=== PATIENT | female | born 1960 | race Caucasian/White ===

== ENCOUNTER 2018-07-16 19:38 | Emergency (ER) | payer OTHER ==
[~2018-07-16] VITALS: Ht 165.1 cm; Wt 68.0 kg
[2018-07-16 19:41] VITALS: BP_SYST 177
[2018-07-16 21:12] LABS: BILIRUBIN,URINE NEGATIVE (NEGATIVE); BLOOD, URINE 1+ (NEGATIVE); CLARITY/URINE CLEAR (CLEAR); COLOR,URINE YELLOW (YELLOW); GLUCOSE,URINE NEGATIVE (NEGATIVE); KETONES,URINE NEGATIVE (NEGATIVE); LEUKOCYTE ESTERASE ,URINE NEGATIVE (NEGATIVE); NITRITE, URINE NEGATIVE (NEGATIVE); PH,URINE 5.5 (5.0-8.0); PROTEIN URINE NEGATIVE (NEGATIVE); UROBILINOGEN,URINE 0.2 (0.2-1.0)
[2018-07-16 21:29] LABS: BASOPHILS % (AUTO) 0.7 % (0.0-2.0); EOSINOPHILS # (AUTO) 0.3 K/uL (0.0-0.4); EOSINOPHILS % (AUTO) 4.3 % (0.0-4.0); HEMATOCRIT 39.4 % (36-48); HEMOGLOBIN 12.4 g/dL (12.0-16.0); LYMPHOCYTES # (AUTO) 1.5 K/uL (1.0-5.5); LYMPHOCYTES % (AUTO) 21.8 % (20.5-51.5); MEAN CORPUSCULAR HEMOGLOBIN 28 pg (27-31); MEAN CORPUSCULAR HGB CONC 32 % (32-36); MEAN CORPUSCULAR VOLUME 88 fL (79.0-98.0); MONOCYTES # (AUTO) 0.3 K/uL (0.0-1.0); MONOCYTES % (AUTO) 4.8 % (1.7-9.3); NEUTROPHILS # (AUTO) 4.8 K/uL (1.8-7.7); NEUTROPHILS % (AUTO) 68.4 % (40.0-70.0); PLATELET COUNT (AUTO) 273 K/uL (130-430); RED BLOOD CELL COUNT(AUTO) 4.48 MIL/uL (4.2-6.2); RED CELL DISTRIBUTION WIDTH 12.5 % (9.0-15.0); WHITE BLOOD COUNT (AUTO) 6.9 K/uL (4.8-10.8)
[2018-07-16] MEDS ORDERED: KETOROLAC TROMETHAMINE 15 MG VIAL IVP ONE (21:30)
[2018-07-16] MEDS ORDERED: ONDANSETRON HCL 4 MG/2 ML VIAL IVP ONE (21:30)
[2018-07-16] MEDS ORDERED: LORazepam 2 MG/ML VIAL (FOR ER USE) IVP ONE (21:30)
[2018-07-16 21:36] LABS: CALCIUM 9.6 mg/dL (8.4-11.0); CREATININE 0.96 mg/dL (0.55-1.30); POTASSIUM 3.7 mmol/L (3.5-5.1)
[2018-07-16 21:41] LABS: ALBUMIN 3.6 g/dL (3.4-4.8); TOTAL BILIRUBIN 0.2 mg/dL (0.0-1.0)
[2018-07-16 22:03] LABS: PROTHROMBIN TIME 9.7 SECS (9.5-12.5)
[2018-07-16] MEDS ORDERED: IOHEXOL 100 ML IV ONE (22:06)
[2018-07-16 22:31] LABS: BACTERIA,URINE FEW /HPF (None Seen); MUCUS,URINE None Seen /LPF (None Seen); RBC,URINE 0-3 /HPF (0-3); WBC,URINE 0-3 /HPF (0-3)
[2018-07-17 00:11] VITALS: BP_SYST 122
== END 2018-07-17 00:11 | disposition home or self-care (01) ==
LOC: SED 19:38
DX: M94.0 Chondrocostal junction syndrome [Tietze] (principal); M25.512 Pain in left shoulder; M79.602 Pain in left arm; J45.909 Unspecified asthma, uncomplicated; I10 Essential (primary) hypertension
CPT/HCPCS: 36415; 71045; 71275; 72125; 80053; 81000; 82550; 83880; 84484; 85025; 85379; 85610; 85730; 93005; 96374; 96375; 99285; J1885; J2060; J2405; Q9967

== ENCOUNTER 2019-06-05 20:16 | Inpatient (IN) | payer OTHER ==
[~2019-06-05] VITALS: Ht 165.1 cm; Wt 76.2 kg
--- NOTE | 2019-06-05 20:26 | NUR ---
Patient triaged and placed in waiting room. VSS and patient appears in no acute distress at this time. Accompanied by , awaiting available bed, and MD notified of need for MSE. EKD given to Dr Dunlap
[2019-06-05 20:29] VITALS: BP_SYST 156
--- NOTE | 2019-06-05 20:30 | NUR ---
Dr Abbott doing MSE at [place] [id number]
--- NOTE | 2019-06-05 20:32 | NUR ---
Pt brought by back to waiting room by Dr Dunlap
[2019-06-05 21:44] LABS: BASOPHILS % (AUTO) 0.6 % (0.0-2.0); EOSINOPHILS # (AUTO) 0.5 K/uL (0.0-0.4); EOSINOPHILS % (AUTO) 7.3 % (0.0-4.0); HEMATOCRIT 38.6 % (36-48); HEMOGLOBIN 12.7 g/dL (12.0-16.0); LYMPHOCYTES # (AUTO) 1.3 K/uL (1.0-5.5); LYMPHOCYTES % (AUTO) 20.5 % (20.5-51.5); MEAN CORPUSCULAR HEMOGLOBIN 29 pg (27-31); MEAN CORPUSCULAR HGB CONC 33 % (32-36); MEAN CORPUSCULAR VOLUME 89 fL (79.0-98.0); MONOCYTES # (AUTO) 0.6 K/uL (0.0-1.0); MONOCYTES % (AUTO) 9.7 % (1.7-9.3); NEUTROPHILS # (AUTO) 3.9 K/uL (1.8-7.7); NEUTROPHILS % (AUTO) 61.9 % (40.0-70.0); PLATELET COUNT (AUTO) 257 K/uL (130-430); RED BLOOD CELL COUNT(AUTO) 4.34 MIL/uL (4.2-6.2); WHITE BLOOD COUNT (AUTO) 6.3 K/uL (4.8-10.8)
[2019-06-05 21:57] LABS: CALCIUM 9.1 mg/dL (8.4-11.0); CREATININE 0.91 mg/dL (0.55-1.30); POTASSIUM 3.9 mmol/L (3.5-5.1)
[2019-06-05 22:02] LABS: PROTHROMBIN TIME 9.7 SECS (9.5-12.5)
[2019-06-05 22:08] LABS: ALBUMIN 3.6 g/dL (3.4-4.8); TOTAL BILIRUBIN 0.2 mg/dL (0.0-1.0)
--- NOTE | 2019-06-05 22:47 | NUR ---
Patient to ER bed 1 to gown for evaluation. Side rails up.
--- NOTE | 2019-06-05 23:00 | NUR ---
Pt came to the ED for palpitations, chest pain and L shoulder pain. Pt reports she had a racing HR last night at rest. Pt states HR was in 120s. HX of anxiety and cosmetic sx. Denies n/v/d or fever. No other complaints/injuries noted. Will cont. to monitor.
--- NOTE | 2019-06-06 00:45 | NUR ---
ER at bedside examining patient.
--- NOTE | 2019-06-06 01:01 | NUR ---
belongings list completed.
--- NOTE | 2019-06-06 01:01 | NUR ---
unable to do med reconcilation. Pt reports that she cannot recall meds or dosages.
[2019-06-06] MEDS ORDERED: LORazepam 1 MG TABLET PO ONE (02:00)
--- NOTE | 2019-06-06 02:07 | NUR ---
Patient will be admitted to care of Dr. Corrales. Admitted to Tele unit. Will go to room 109C. Belongings list completed. Summary report printed. Report will be given at bedside.
[2019-06-06] MEDS ORDERED: ACETAMINOPHEN 325 MG TABLET PO PRN (02:15)
--- NOTE | 2019-06-06 02:22 | NUR ---
ADMIT NOTE Received pt from ER to the floor with a diagnosis of chest pain rule out non stemi. Admission process initiated. patient oriented to pain management, safety and call light-teach back done.
--- NOTE | 2019-06-06 02:22 | NUR ---
Transfer to Tele via ACLS protocol. Licensed nurse present. IV present no signs or symptoms of infiltration.
[2019-06-06 02:31] VITALS: BP_SYST 127
[2019-06-06] MEDS ORDERED: DIPH50CA38 PO (02:58)
[2019-06-06] MEDS ORDERED: ALPR0.5T PO (02:58)
[2019-06-06] MEDS ORDERED: METO25TA6 PO (02:58)
[2019-06-06] MEDS ORDERED: AMLO2.5T50 PO (02:58)
--- NOTE | 2019-06-06 03:30 | NUR ---
Pt denies chest pain or discomfort at this time. Pt was given snacks per her request. gambling monitor is showing SR.
--- NOTE | 2019-06-06 03:58 | NUR ---
Consultation Paged Reason for consultation: Cardio Was consult called: Y Person who was notified: Jackie Consulting Physician: Yehuda Saenz Stress Engineer Ordering Physician: Dr. Corrales
--- NOTE | 2019-06-06 05:27 | NUR ---
Pt is sleeping without any distress. Fall and safety precautions are in place.
--- NOTE | 2019-06-06 07:15 | NUR ---
sbar report received at the bedside. patient aaox 4. lungs bilaterally clear. breathing even and unlabored. abdomen soft and non distended. has redness noted on the rt breast near the nipple area. verbalized no pain. not itchy and has dressing on it. has iv access on the left ac #18. saline lock. bed low position, alarmed and locked. ambulatory.
--- NOTE | 2019-06-06 07:20 | NUR ---
Pt is awake and resting in bed without any distress noted. No c/o pain or discomfort. All pt's needs were attended to. Fall and safety precautions are in place. Will endorse to day shift nurse.
[2019-06-06 08:03] VITALS: BP_SYST 133
--- NOTE | 2019-06-06 09:00 | NUR ---
no due medication given. no chest pain nor acute distress noted.
--- NOTE | 2019-06-06 09:21 | NUR ---
CONSULTATION PAGED/CALLED Reason for Consultation: CARDIO Person Who was Notified: SPOKE TO MARIO FROM OFFICE. Consulting Physician: Cdl Truck Driver Specialty: CARDIO Ordering Physician:
--- NOTE | 2019-06-06 11:00 | NUR ---
resting and watching tv. awaiting for dr gomez to come for consult cardiology.
[2019-06-06 12:20] VITALS: BP_SYST 138
--- NOTE | 2019-06-06 13:00 | NUR ---
still eating lunch tray. no pain noted. voided to the bathroom.
--- NOTE | 2019-06-06 15:00 | NUR ---
seen by dr gomez said patient can go home, if okay with dr miller.
[2019-06-06] MEDS ORDERED: METOPROLOL SUCCINATE 25 MG TAB.SR.24H (TOPROL XL) PO ONE (16:00)
[2019-06-06 16:27] VITALS: BP_SYST 138
--- NOTE | 2019-06-06 17:00 | NUR ---
dr gomez came again to reevaluate the patient. said patient can go home, if ok with dr miller.
[2019-06-06 17:09] VITALS: BP_SYST 138
--- NOTE | 2019-06-06 17:21 | NUR ---
dr miller called for discharge order. said ok, to see pcp in one week. and to have mammogram test. and have her breast seen. by the primary care doctor.
--- NOTE | 2019-06-06 18:00 | NUR ---
cleanse normal saline the rt breast wound. photo taken. and documented. dry/intact. redness noted. apply barrier cream and optifoam dressing placed.
--- NOTE | 2019-06-06 18:43 | NUR ---
rn cardiac cath removed. scdh i d band removed. discharged instruction given and instructed to continue same medication and see the die cast die maker in one week. needs to have mammogram test after discharge. discharged instruction signed and said many thanks for the services that i have in [facility].
--- NOTE | 2019-06-06 19:00 | NUR ---
patient left in stable condition. berry picker machine operator by the . refused to have a wheelchair. she said i am okay. will see the doctor for appointment and the mammogram test.
[2019-06-07] MEDS ORDERED: METOPROLOL SUCCINATE 25 MG TAB.SR.24H (TOPROL XL) PO SCH (09:00)
== END 2019-06-06 19:00 | disposition home or self-care (01) | DRG 206 ==
LOC: SED 20:16 → STU 06-06 02:03
PROVIDERS: ADMIT Internal Medicine; ATTEND Internal Medicine
DX: M94.0 Chondrocostal junction syndrome [Tietze] (principal); F31.9 Bipolar disorder, unspecified; F41.9 Anxiety disorder, unspecified; I10 Essential (primary) hypertension; Z79.899 Other long term (current) drug therapy
CPT/HCPCS: 36415; 71045; 80053; 83880; 84443-TC; 84484; 85025; 85379; 85610-TC; 85730-TC; 93005; 93306; 99285; G0378

== ENCOUNTER 2024-06-05 14:30 | Emergency (ER) | payer OTHER ==
[~2024-06-05] VITALS: Ht 167.6 cm; Wt 70.3 kg
[~2024-06-05 14:30] MED LIST: ALPR0.5T PO; AMLO2.5T50 PO; DIPH50CA38 PO; METO25TA6 PO
[2024-06-05 14:50] VITALS: BP_SYST 114; PULSE 85; RESP 18; TEMP 97.8; O2SAT 96
[2024-06-05 15:58] LABS: ANION GAP 11 (5-15); CALCIUM 9.6 mg/dL (8.4-11.0); CARBON DIOXIDE 24 mmol/L (23-29); CHLORIDE 104 mmol/L (98-107); CREATININE 0.88 mg/dL (0.55-1.30); GFR AFRICAN AMERICAN 83 mL/min (>90); GLUCOSE 116 mg/dL (74-106); SODIUM SERUM 139 mmol/L (136-145); UREA NITROGEN, BLOOD 17 mg/dL (8-21)
[2024-06-05 16:00] LABS: GFR NON AFRICAN-AMERICAN 69 mL/min (>90)
[2024-06-05 16:09] LABS: BASOPHILS % (AUTO) 0.4 % (0.0-2.0); EOSINOPHILS # (AUTO) 0.2 K/uL (0.0-0.4); EOSINOPHILS % (AUTO) 1.7 % (0.0-4.0); HEMATOCRIT 37.2 % (36-48); HEMOGLOBIN 12.6 g/dL (12.0-16.0); LYMPHOCYTES # (AUTO) 1.2 K/uL (1.0-5.5); LYMPHOCYTES % (AUTO) 10.8 % (20.5-51.5); MEAN CORPUSCULAR HEMOGLOBIN 28 pg (27-31); MEAN CORPUSCULAR HGB CONC 34 % (32-36); MEAN CORPUSCULAR VOLUME 83 fL (79.0-98.0); MONOCYTES # (AUTO) 0.8 K/uL (0.0-1.0); MONOCYTES % (AUTO) 6.6 % (1.7-9.3); NEUTROPHILS # (AUTO) 9.2 K/uL (1.8-7.7); NEUTROPHILS % (AUTO) 80.5 % (40.0-70.0); PLATELET COUNT (AUTO) 379 K/uL (130-430); RED BLOOD CELL COUNT(AUTO) 4.47 MIL/uL (4.2-6.2); RED CELL DISTRIBUTION WIDTH 14.2 % (9.0-15.0); WHITE BLOOD COUNT (AUTO) 11.5 K/uL (4.8-10.8)
[2024-06-05] MEDS: DIPHENHYDRAMINE HCL 50 MG CAPSULE PO ONE (16:50)
[2024-06-05] MEDS: FAMOTIDINE 20 MG TABLET PO ONE (16:50)
[2024-06-05] MEDS: predniSONE 20 MG TABLET PO ONE (16:51)
[2024-06-05 17:02] LABS: BILIRUBIN,URINE NEGATIVE (NEGATIVE); BLOOD, URINE NEGATIVE (NEGATIVE); CLARITY/URINE CLEAR (CLEAR); COLOR,URINE YELLOW (YELLOW); GLUCOSE,URINE NEGATIVE (NEGATIVE); KETONES,URINE NEGATIVE (NEGATIVE); LEUKOCYTE ESTERASE ,URINE NEGATIVE (NEGATIVE); NITRITE, URINE NEGATIVE (NEGATIVE); PROTEIN URINE NEGATIVE (NEGATIVE); UROBILINOGEN,URINE 0.2 (0.2-1.0)
[2024-06-05] MEDS: DEXAMETHASONE SOD PHOSPHATE 4 MG/ML VIAL IM ONE (17:03)
[2024-06-05] MEDS ORDERED: PRED20TA PO (17:45)
[2024-06-05] MEDS ORDERED: BEN50 PO (17:46)
[2024-06-05 17:55] VITALS: BP_SYST 115; PULSE 62; RESP 17; TEMP 97.8; O2SAT 98
== END 2024-06-05 17:55 | disposition home or self-care (01) ==
LOC: SED 14:30
DX: R21 Rash and other nonspecific skin eruption (principal); R06.02 Shortness of breath; J45.909 Unspecified asthma, uncomplicated; I10 Essential (primary) hypertension; Z79.899 Other long term (current) drug therapy; Z79.2 Long term (current) use of antibiotics
CPT/HCPCS: 99285; 71045; 80048; 81001; 83880; 85025; 84484; 36415; 93005; 96372; 81003; Q0163; J7512; J1100